=== PATIENT | male | born 1995 | race Caucasian/White ===

== ENCOUNTER 2024-09-07 09:38 | Outpatient (CLI) | payer OTHER | END 2024-09-07 09:42 | disposition home or self-care (01) | LOC: SONOGRAMA 09:38 | PROVIDERS: ATTEND Pathology Anatomic Pathology & Clinical Pathology | DX: E04.1 Nontoxic single thyroid nodule (principal); D34 Benign neoplasm of thyroid gland; E07.89 Other specified disorders of thyroid ==